=== PATIENT | female | born 1965 | race Caucasian/White ===

== ENCOUNTER 2021-04-23 04:37 | Day surgery (SDC) | payer BC ==
[2021-04-18 16:06] VITALS: BMI 25.2
[2021-04-23] MEDS ORDERED: PROPOFOL 20 ML ONE ×4 (06:34→06:37)
[2021-04-23] MEDS ORDERED: MIDAZOLAM HCL 2 MG/2 ML SINGLE DOSE VIAL ONE (06:35)
[2021-04-23] MEDS ORDERED: SUCCINYLCHOLINE CHLORIDE 200 MG/10 ML SYRINGE ONE (06:36)
[2021-04-23] MEDS ORDERED: PROMETHAZINE HCL 25 MG/1 ML VIAL IVPB PRN (07:10)
[2021-04-23] MEDS ORDERED: LACTATED RINGERS SOLUTION 1,000 ML IV SCH (07:15)
[2021-04-23] MEDS ORDERED: ONDANSETRON 4 MG/2 ML VIAL IVPUSH PRN (07:49)
[2021-04-23] MEDS ORDERED: IBUPROFEN 600 MG TABLET (FP) PO PRN (07:49)
[2021-04-23] MEDS ORDERED: IBUPROFEN 800 MG/8 ML IJ IVPB PRN (07:49)
[2021-04-23] MEDS ORDERED: oxyCODONE HCL 5 MG TABLET PO PRN (07:52)
[2021-04-23] MEDS ORDERED: ELECTROLYTE-148 SOLN 1,000 ML IV SCH (08:00)
[2021-04-23 12:28] VITALS: BP 106/62; PULSE 58; TEMP 97.6
== END 2021-04-23 12:29 | disposition home or self-care (01) ==
LOC: JASU-SURG 04:37
PROVIDERS: ATTEND Obstetrics & Gynecology
PROC: 0UDB7ZX Extraction of Endometrium, Via Natural or Artificial Opening, Diagnostic (ICD-10-PCS; 2021-04-23)
PROC: 0UBC8ZX Excision of Cervix, Via Natural or Artificial Opening Endoscopic, Diagnostic (ICD-10-PCS; principal; 2021-04-23 07:30)
PROC: 0UB98ZX Excision of Uterus, Via Natural or Artificial Opening Endoscopic, Diagnostic (ICD-10-PCS; 2021-04-23 07:30)
DX: N95.0 Postmenopausal bleeding (principal); N84.0 Polyp of corpus uteri; N84.1 Polyp of cervix uteri
CPT/HCPCS: 81025; 88305-TC; 94760

== ENCOUNTER 2022-09-16 04:28 | Day surgery (SDC) | payer BC ==
[2022-09-12 10:29] VITALS: BMI 24.9
[2022-09-16] MEDS ORDERED: PROPOFOL 20 ML ONE (07:20)
[2022-09-16] MEDS ORDERED: ONDANSETRON 4 MG/2 ML VIAL ONE (07:20)
[2022-09-16] MEDS ORDERED: DEXAMETHASONE SOD PHOSPHATE 4 MG/1 ML VIAL ONE (07:20)
[2022-09-16] MEDS ORDERED: LIDOCAINE HCL/PF 2% SDV 5ML VIAL ONE (07:20)
[2022-09-16] MEDS ORDERED: MIDAZOLAM HCL 2 MG/2 ML SINGLE DOSE VIAL ONE (07:20)
[2022-09-16] MEDS ORDERED: FENTANYL CITRATE/PF 50 MCG/ML VIAL ONE ×2 (07:20→08:38)
[2022-09-16] MEDS ORDERED: IBUPROFEN 600 MG TABLET (FP) PO PRN (07:39)
[2022-09-16] MEDS ORDERED: ONDANSETRON 4 MG/2 ML VIAL IVPUSH PRN ×2 (07:39→11:34)
[2022-09-16] MEDS ORDERED: IBUPROFEN 800 MG/8 ML IJ IVPB PRN (07:39)
[2022-09-16] MEDS ORDERED: oxyCODONE HCL 5 MG TABLET PO PRN (07:39)
[2022-09-16] MEDS ORDERED: ELECTROLYTE-148 SOLN 1,000 ML IV SCH (07:45)
[2022-09-16] MEDS ORDERED: PHENYLEPHRINE HCL 10 MG/1 ML SINGLE DOSE VIAL ONE ×2 (08:04→08:05)
[2022-09-16] MEDS ORDERED: KETOROLAC TROMETHAMINE 30 MG/1 ML VIAL ONE (08:16)
[2022-09-16] MEDS ORDERED: ACETAMINOPHEN INJECTION 100 ML IVPB ONE (08:38)
[2022-09-16] MEDS ORDERED: ACETAMINOPHEN 1000 MG/100 ML BAG IVPB ONE ×2 (08:42→11:34)
[2022-09-16] MEDS ORDERED: LACTATED RINGERS SOLUTION 1,000 ML IV SCH (09:30)
[2022-09-16 11:09] VITALS: BP 94/57; PULSE 83; RESP 16; TEMP 97.5
== END 2022-09-16 11:20 | disposition home or self-care (01) ==
LOC: JASU-SURG 04:28
PROVIDERS: ATTEND Obstetrics & Gynecology
PROC: 0UDB7ZZ Extraction of Endometrium, Via Natural or Artificial Opening (ICD-10-PCS; principal; 2022-09-16 07:30)
PROC: 0UJD8ZZ Inspection of Uterus and Cervix, Via Natural or Artificial Opening Endoscopic (ICD-10-PCS; 2022-09-16 07:30)
DX: N95.0 Postmenopausal bleeding (principal)
CPT/HCPCS: 87086; 88305-TC; 94760